=== PATIENT | male | born 1990 | race Caucasian/White ===

== ENCOUNTER 2017-03-19 08:01 | Emergency (ER) | payer OTHER ==
[~2017-03-19] VITALS: Ht 172.7 cm; Wt 64.0 kg
[2017-03-19] MEDS ORDERED: ZONISAMIDE (08:13)
[2017-03-19] MEDS ORDERED: HALO10TA13 PO (08:13)
[2017-03-19] MEDS ORDERED: DIVA500T PO (08:13)
[2017-03-19] MEDS ORDERED: GABA-529 PO (08:13)
[2017-03-19] MEDS ORDERED: FLUO-124 PO (08:13)
[2017-03-19 08:18] VITALS: BP 109/70
== END 2017-03-19 10:03 | disposition home or self-care (01) ==
LOC: ER 08:50
DX: J02.9 Acute pharyngitis, unspecified (principal); Z88.0 Allergy status to penicillin; J45.909 Unspecified asthma, uncomplicated
CPT/HCPCS: 99283

== ENCOUNTER 2017-05-26 22:00 | Emergency (ER) | payer SELFPAY ==
[~2017-05-26] VITALS: Ht 170.2 cm; Wt 77.0 kg
[~2017-05-26 22:00] MED LIST: DIVA500T PO; FLUO-124 PO; GABA-529 PO; HALO10TA13 PO; ZONISAMIDE
[2017-05-26 22:04] VITALS: BP 112/77
== END 2017-05-27 03:27 | disposition left against medical advice (07) ==
LOC: ER 22:09
DX: M54.9 Dorsalgia, unspecified (principal); Z53.21 Procedure and treatment not carried out due to patient leaving prior to being seen by health care provider